=== PATIENT | female | born 1960 | race American Indian/Alaskan Native ===

== ENCOUNTER 2018-02-11 08:06 | Outpatient (CLI) | payer BC ==
[2018-02-11] MEDS ORDERED: XYLOCAINE TOPICAL 4% TP ONE (09:45)
== END 2018-02-11 08:07 | disposition home or self-care (01) ==
LOC: WOUND 08:06
PROVIDERS: ATTEND Podiatrist
DX: I87.312 Chronic venous hypertension (idiopathic) with ulcer of left lower extremity (principal); L97.822 Non-pressure chronic ulcer of other part of left lower leg with fat layer exposed
CPT/HCPCS: 11042; 29580; G0463

== ENCOUNTER 2018-02-16 09:21 | Outpatient (CLI) | payer BC ==
[2018-02-16] MEDS ORDERED: XYLOCAINE TOPICAL 4% TP ONE (09:40)
== END 2018-02-16 09:22 | disposition home or self-care (01) ==
LOC: WOUND 09:21
PROVIDERS: ATTEND Surgery
DX: I87.312 Chronic venous hypertension (idiopathic) with ulcer of left lower extremity (principal); L97.822 Non-pressure chronic ulcer of other part of left lower leg with fat layer exposed
CPT/HCPCS: 29580

== ENCOUNTER 2018-02-23 09:19 | Outpatient (CLI) | payer BC ==
[2018-02-23] MEDS ORDERED: XYLOCAINE TOPICAL 4% TP ONE ×2 (09:33→09:41)
== END 2018-02-23 09:20 | disposition home or self-care (01) ==
LOC: WOUND 09:19
PROVIDERS: ATTEND Surgery
DX: I87.312 Chronic venous hypertension (idiopathic) with ulcer of left lower extremity (principal); L97.822 Non-pressure chronic ulcer of other part of left lower leg with fat layer exposed
CPT/HCPCS: 29580

== ENCOUNTER 2018-03-02 09:14 | Outpatient (CLI) | payer BC ==
[2018-03-02] MEDS ORDERED: XYLOCAINE TOPICAL 4% TP ONE ×2 (09:26→09:42)
== END 2018-03-02 09:15 | disposition home or self-care (01) ==
LOC: WOUND 09:14
PROVIDERS: ATTEND Surgery
DX: I87.312 Chronic venous hypertension (idiopathic) with ulcer of left lower extremity (principal); L97.822 Non-pressure chronic ulcer of other part of left lower leg with fat layer exposed
CPT/HCPCS: 29580

== ENCOUNTER 2018-03-07 08:03 | Outpatient (CLI) | payer BC ==
[2018-03-07] MEDS ORDERED: XYLOCAINE TOPICAL 4% TP ONE ×2 (08:10→08:20)
== END 2018-03-07 08:04 | disposition home or self-care (01) ==
LOC: WOUND 08:03
PROVIDERS: ATTEND Surgery
DX: I87.312 Chronic venous hypertension (idiopathic) with ulcer of left lower extremity (principal); L97.822 Non-pressure chronic ulcer of other part of left lower leg with fat layer exposed; I82.502 Chronic embolism and thrombosis of unspecified deep veins of left lower extremity
CPT/HCPCS: 29580

== ENCOUNTER 2018-03-14 08:22 | Outpatient (CLI) | payer BC ==
[2018-03-14] MEDS ORDERED: XYLOCAINE TOPICAL 2% 5ML ONE (08:47)
[2018-03-14] MEDS ORDERED: XYLOCAINE TOPICAL 2% 5ML TP ONE (08:50)
== END 2018-03-14 08:23 | disposition home or self-care (01) ==
LOC: WOUND 08:22
PROVIDERS: ATTEND Surgery
DX: I87.312 Chronic venous hypertension (idiopathic) with ulcer of left lower extremity (principal); L97.822 Non-pressure chronic ulcer of other part of left lower leg with fat layer exposed
CPT/HCPCS: 29580; G0463

== ENCOUNTER 2018-03-22 13:08 | Outpatient (CLI) | payer BC | END 2018-03-22 13:09 | disposition home or self-care (01) | LOC: WOUND 13:08 | PROVIDERS: ATTEND Surgery | DX: I87.312 Chronic venous hypertension (idiopathic) with ulcer of left lower extremity (principal); L97.822 Non-pressure chronic ulcer of other part of left lower leg with fat layer exposed | CPT/HCPCS: 29580 ==

== ENCOUNTER 2018-03-28 08:04 | Outpatient (CLI) | payer BC ==
[2018-03-28] MEDS ORDERED: XYLOCAINE TOPICAL 4% TP ONE ×2 (08:20→08:32)
== END 2018-03-28 08:05 | disposition home or self-care (01) ==
LOC: WOUND 08:04
PROVIDERS: ATTEND Surgery
DX: I87.312 Chronic venous hypertension (idiopathic) with ulcer of left lower extremity (principal); L97.822 Non-pressure chronic ulcer of other part of left lower leg with fat layer exposed
CPT/HCPCS: 29580; G0463; 99214

== ENCOUNTER 2018-04-04 08:00 | Outpatient (CLI) | payer BC | END 2018-04-04 08:01 | disposition home or self-care (01) | LOC: WOUND 08:00 | PROVIDERS: ATTEND Surgery | DX: I87.312 Chronic venous hypertension (idiopathic) with ulcer of left lower extremity (principal); L97.822 Non-pressure chronic ulcer of other part of left lower leg with fat layer exposed | CPT/HCPCS: 99213; G0463 ==